=== PATIENT | female | born 1975 | race African-American/Black ===

== ENCOUNTER 2020-12-18 18:44 | Emergency (ER) | payer OTHER ==
[~2020-12-18] VITALS: Ht 162.6 cm; Wt 90.7 kg
[~2020-12-18 18:44] MED LIST: KEFLEX500 MG PO
[2020-12-18 19:21] LABS: URINE BILIRUBIN NEGATIVE (Negative); URINE BLOOD TRACE (Negative); URINE CLARITY CLEAR; URINE COLOR YELLOW; URINE GLUCOSE-RANDOM* NEGATIVE (Negative); URINE KETONES NEGATIVE (Negative); URINE NITRITE-REFLEX NEGATIVE (Negative); URINE PROTEIN (DIPSTICK) NEGATIVE (Negative); URINE SPECIFIC GRAVITY 1.015 (1.005-1.035)
[2020-12-18 19:29] LABS: URINE LEUKOCYTES-REFLEX 1+ (Negative)
[2020-12-18 19:50] LABS: BACTERIA-REFLEX 1-9 Few /HPF (None Seen); CASTS None Seen /LPF (None Seen); CRYSTALS None Seen /LPF (None Seen); SQUAMOUS 4-10 Moderate /LPF (0-3); URINE RBC 1-2 Rare /HPF (NONE SEEN); URINE WBC-REFLEX 6-15 Few /HPF (0-5)
[2020-12-18] MEDS ORDERED: FLAGYL500 M1 PO (21:34)
[2020-12-18] MEDS ORDERED: DOXYCYCLINE 10100 M2 PO (21:34)
[2020-12-18 22:50] VITALS: BP 132/88
== END 2020-12-18 22:17 | disposition home or self-care (01) ==
LOC: ER 18:44
PROVIDERS: Nurse Practitioner Family
DX: A59.9 Trichomoniasis, unspecified (principal); N76.0 Acute vaginitis; B96.89 Other specified bacterial agents as the cause of diseases classified elsewhere; Z79.899 Other long term (current) drug therapy